=== PATIENT | male | born 1995 | race Caucasian/White ===

== ENCOUNTER 2023-06-28 08:40 | Day surgery (SDC) | payer OTHER ==
[~2023-06-28] VITALS: Ht 172.7 cm; Wt 99.8 kg
[2023-06-28] MEDS ORDERED: MIDAZOLAM 2 MG/2 ML VIAL ONE (09:49)
[2023-06-28] MEDS: MIDAZOLAM 2 MG/2 ML VIAL IV ONE (10:10)
== END 2023-06-28 11:25 | disposition home or self-care (01) ==
LOC: MDS 08:40 → MMU 08:41 → MDS 11:25
PROVIDERS: ATTEND Internal Medicine Gastroenterology
DX: R11.2 Nausea with vomiting, unspecified (principal); K29.70 Gastritis, unspecified, without bleeding; K44.9 Diaphragmatic hernia without obstruction or gangrene; K20.90 Esophagitis, unspecified without bleeding; Z98.890 Other specified postprocedural states
CPT/HCPCS: 36415; 43239; 86677; J2250